=== PATIENT | female | born 1945 | race Caucasian/White ===

== ENCOUNTER 2018-01-09 13:37 | Observation (INO) | payer OTHER ==
--- NOTE | 2018-01-09 14:06 | EDPHY ---
H & P Stated Complaint: TRAVELED FROM [place]/VISITING 2 WEEKS/FEELING SOB/DIZZY Time Seen by Provider: 01/09/18 14:05 - Personal History Current Tetanus/Diphtheria Vaccine: Yes - Medical/Surgical History Hx Asthma: No Hx Chronic Respiratory Disease: No Hx Diabetes: No Hx Cardiac Disease: No Hx Renal Disease: No Hx Cirrhosis: No Hx Alcoholism: No Hx HIV/AIDS: No Hx Splenectomy or Spleen Trauma: No Other PMH: COPD/RA/SCIATICA/HTN - Social History Smoking Status: Former smoker Constitutional: Initial Vital Signs Temperature (C) 37 C 01/09/18 13:44 Heart Rate 116 H 01/09/18 13:44 Respiratory Rate 20 01/09/18 13:44 Blood Pressure 124/82 H 01/09/18 13:44 O2 Sat (%) 91 L 01/09/18 13:44 O2 Delivery Mode Room Air O2 (L/minute) 2 Allergies/Adverse Reactions: acetaminophen [From Percocet] Allergy (Verified 01/09/18 13:42) oxycodone [From Percocet] Allergy (Verified 01/09/18 13:42) pregabalin [From Lyrica] Allergy (Verified 01/09/18 13:42) Home Medications: Medication Instructions Recorded ACTEMRA 01/09/18 Gabapentin 01/09/18 Losartan Potassium 01/09/18 Spiriva Handihaler 01/09/18 Medical Decision Making - Diagnostics Imaging Results: Imaging Impressions Chest X-Ray 01/09/18 14:50 Impression: Underlying COPD, without acute cardiopulmonary process.. Chest/Thorax CTA 01/09/18 15:15 Impression: 1. No evidence of thrombopulmonary embolic disease. 2. Normal caliber atherosclerotic aorta. No dissection or penetrating ulcer. 3. Extensive coronary calcified plaque involving left main, left anterior descending, and origin of the left circumflex coronary artery. 4. Mild bronchitis and minimal paraseptal emphysema. 5. No suspicious pulmonary nodule or lymphadenopathy. Findings discussed with Emergency Department physician, Kit Wallace MD, on , 18:11. Imaging: Discussed imaging studies w/ inbound call center agent Radiologist, I viewed and interpreted images myself ED Course/Re-evaluation: CHIEF COMPLAINT: Dizzy, dyspnea HISTORY OF PRESENT ILLNESS: The patient is a 72 y/o female with a history of COPD and TIA visiting from [place] and arriving with her daughter complaining of dizziness and dyspnea onset last night. She arrived here 3 days ago and visits [place] once or twice annually with no prior issues related to the altitude. Her symptoms are aggravated significantly by standing, walking, and turning her head to the left; they nearly extinguish while lying flat and not moving her head. She has had vertigo once previously 4 years ago that felt similar and responded well to Meclizine. During a prior TIA, she had numbness on the left side of her face that she does not have today. That episode was attributed to "something wrong with my carotid" and she has since taken Plavix. Today she denies headache, weakness, paresthesias, recent trauma, recent illness. REVIEW OF SYSTEMS: A 10 point review of systems was performed and is negative with the exception of the elements mentioned in the history of present illness. PHYSICAL EXAM: HR 108, BP, O2 Sat 91%, RR. Temp noted General Appearance: Alert, well hydrated, appropriate, and non-toxic appearing. Head: Atraumatic without scalp tenderness or obvious injury Eyes: Pupils equal, round, reactive to light and accommodation, EOMI, no trauma , no injection. Ears: Clear bilaterally, no perforation, normal landmarks Nose: Atraumatic, no rhinorrhea, clear. Throat: Mucus membranes moist. Neck: Supple. Respiratory: No retractions, no distress, no wheezes, and no accessory muscle use. Lungs are clear to auscultation bilaterally. Cardiovascular: Mildly tachycardic rate and rhythm, no murmurs, rubs, or gallops. Good capillary refill all extremities. Gastrointestinal: Abdomen is soft, nontender, non-distended, no masses, no rebound, no guarding, no peritoneal signs. Musculoskeletal: Normal active ROM of all extremities, atraumatic. Neurological: Alert, appropriate, and interactive. The patient has non-focal cranial nerves, motor, sensory, and cerebellar exam. Skin: No rashes, good turgor, no nodules on palpation. Past medical history: COPD, rheumatoid arthritis, sciatica, hypertension, TIA - "something abnormal in left carotid" now on Plavix, vertigo 4 years ago. Past surgical history: Noncontributory Family history: Noncontributory Social history: Visiting from [place]. Daughter at bedside. DIAGNOSTICS/PROCEDURES/CRITICAL CARE TIME: The 12 lead EKG was interpreted by myself. Sinus tachycardia rate 103, PVC, possible S1Q3T3 pattern that could represent right heart strain. No prior EKGs available for comparison. See hard copy and/or "tracemaster" electronic copy for interpretation. Chest x-ray: no infiltrate The 12 lead EKG was interpreted by myself. Sinus mechanism rate 89 with borderline first degree AV block. See hard copy and/or "tracemaster" electronic copy for interpretation. Chest/coronary CTA: no PE, profuse coronary calcification Critical care time spent by me, Dr. Wallace, exclusively with this patient was 45 minutes, exclusive of PA time and exclusive of procedures. The organ system at risk was cardiopulmonary. Time spent in serial assessments of patient, discussion with patient and family, consideration of interventions, review of imaging, EKGs, and labs, and consultation with cardiology. DIFFERENTIAL DIAGNOSIS: The differential diagnosis for the patient's dizziness included but was not limited to peripheral and central causes of vertigo, orthostatic causes including dehydration, cardiogenic and neurogenic causes, and blood loss. The differential diagnosis for the patient's shortness of breath and hypoxemia included but was not limited to pneumonia, myocardial infarction, acute mountain sickness, high altitude pulmonary edema, congestive heart failure, and pulmonary embolus. MEDICAL DECISION MAKING: This is a 72 y/o female with a history of TIA, COPD, and one prior episode of vertigo who presents with a 12-24-hour history of dyspnea and dizziness 3 days after arriving at altitude. Her symptoms almost completely extinguish at rest and are worse with exertion and head movement. She is mildly tachycardic and borderline hypoxemic at 91% on room air. Presentation could represent positional vertigo and/or several other causes for exertional dyspnea including COPD and PE. Plan for IV, labs including d-dimer and troponin, chest x-ray, EKG. D-dimer elevated 15.17. Chest CTA ordered to rule out PE. 1527: Troponin elevated 0.113. Consulted with Dr. Ricketts, spouting installer. He would like us to evaluate coronaries on CTA as well and then he will make a determination regarding catheterization. Triple overlay chest CTA ordered. Metoprolol ordered for HR reduction necessary for this imaging study. 1545: Patient is hypoxemic around 89%. Supplemental O2 administered via NC. 1645: Patient's HR is not coming down significantly. It is currently 90 after 3 doses of metoprolol and repeat EKG shows borderline AV block. We have discontinued efforts to lower heart rate and will attempt CTA study regardless. 180: CT shows profuse arterial calcification. No PE. Repeat serial troponin ordered. Ordered 324mg PO aspirin and her normal dose of Plavix. Cardiology and hospitalist paged. 181: Spoke with hospitalist service. Dr. Stroud accepts admission. 183: Consulted with Dr. Cormier, cardiology. He plans to take patient to tutorial laboratory supervisor tomorrow. - Data Points Laboratory Results: Laboratory Results 01/09/18 14:20 01/09/18 14:20 01/09/18 01/09/18 01/09/18 14:20 14:20 14:20 WBC 5.36 10^3/uL 10^3/uL (3.80-9.50) RBC 3.73 10^6/uL L 10^6/uL (4.18-5.33) Hgb 11.3 g/dL L g/dL (12.6-16.3) Hct 34.3 % L % (38.0-47.0) MCV 92.0 fL fL (81.5-99.8) MCH 30.3 pg pg (27.9-34.1) MCHC 32.9 g/dL g/dL (32.4-36.7) RDW 17.8 % H % (11.5-15.2) Plt Count 159 10^3/uL 10^3/uL (150-400) MPV 10.1 fL fL (8.7-11.7) Neut % (Auto) 50.4 % % (39.3-74.2) Lymph % (Auto) 20.3 % % (15.0-45.0) [place] % (Auto) 21.6 % H % (4.5-13.0) Eos % (Auto) 5.0 % % (0.6-7.6) Baso % (Auto) 2.1 % H % (0.3-1.7) Nucleat RBC Rel Count 0.4 % H % (0.0-0.2) Absolute Neuts (auto) 2.70 10^3/uL 10^3/uL (1.70-6.50) Absolute Lymphs (auto) 1.09 10^3/uL 10^3/uL (1.00-3.00) Absolute Monos (auto) 1.16 10^3/uL H 10^3/uL (0.30-0.80) Absolute Eos (auto) 0.27 10^3/uL 10^3/uL (0.03-0.40) Absolute Basos (auto) 0.11 10^3/uL H 10^3/uL (0.02-0.10) Absolute Nucleated RBC 0.02 10^3/uL H 10^3/uL (0-0.01) Immature Gran % 0.6 % % (0.0-1.1) Immature Gran # 0.03 10^3/uL 10^3/uL (0.00-0.10) D-Dimer 15.17 ug/mLFEU H ug/mLFEU (0.00-0.50) Sodium 137 mEq/L mEq/L (135-145) Potassium 3.7 mEq/L mEq/L (3.3-5.0) Chloride 102 mEq/L mEq/L (97-110) Carbon Dioxide 22 mEq/l mEq/l (22-31) Anion Gap 13 mEq/L mEq/L (8-16) BUN 17 mg/dL mg/dL (7-23) Creatinine 0.8 mg/dL mg/dL (0.6-1.0) Estimated GFR > 60 Glucose 89 mg/dL mg/dL (70-100) Calcium 10.4 mg/dL mg/dL (8.5-10.4) Troponin I 0.113 ng/mL H ng/mL (0.000-0.034) NT-Pro-B Natriuret Pep 3440 pg/mL H pg/mL (0-125) Medications Given: Discontinued Medications Diltiazem HCl 125 mg/ Dextrose 125 mls @ 0 mls/hr IV EDNOW ONE; As Directed PRN Reason: Protocol Stop: 01/09/18 16:18 Last Admin: 01/09/18 16:50 Dose: Not Given Metoprolol Tartrate (Lopressor Injection) 5 mg IVP Q5M [facility] Stop: 01/09/18 15:56 Last Admin: 01/09/18 16:13 Dose: 5 mg Departure - Departure Disposition: [facility] Acute Clinical Impression: Dizziness, Elevated d-dimer, Elevated troponin Dyspnea Qualifiers: Dyspnea type: shortness of breath Qualified Code(s): R06.02 - Shortness of breath Condition: Fair Report Scribed for: Kit Wallace Report Scribed by: Kelle Paiz Date of Report: 01/09/18 Time of Report: 14:25
--- NOTE | 2018-01-09 14:10 | CPEKG ---
Heart Rate: 103 RR Interval: 583 P-R Interval: 192 QRSD Interval: 104 QT Interval: 352 QTC Interval: 461 P [place]: 61 QRS [place]: -39 T Wave [place]: 22 EKG Severity - ABNORMAL ECG - EKG Impression: SINUS TACHYCARDIA EKG Impression: VENTRICULAR PREMATURE COMPLEX EKG Impression: PROBABLE LEFT ATRIAL ABNORMALITY EKG Impression: INFERIOR INFARCT, AGE INDETERMINATE EKG Impression: BORDERLINE R WAVE PROGRESSION, ANTERIOR LEADS Electronically Signed By: Kit Wallace 09-Jan-2018 18:58:14
[2018-01-09 14:56] LABS: PLATELET COUNT 159 10^3/uL (150-400)
[2018-01-09] MEDS: METOPROLOL TARTRATE 5 MG/5 ML INJ IVP SCH ×3 (15:38→16:13)
[2018-01-09] MEDS ORDERED: DILTIAZEM 125 MG in D5W 125 ML IV ONE (16:17)
--- NOTE | 2018-01-09 16:46 | CPEKG ---
Heart Rate: 89 RR Interval: 674 P-R Interval: 228 QRSD Interval: 98 QT Interval: 380 QTC Interval: 463 P [place]: 69 QRS [place]: 2 T Wave [place]: 19 EKG Severity - ABNORMAL ECG - EKG Impression: SINUS RHYTHM EKG Impression: FIRST DEGREE AV BLOCK EKG Impression: INFERIOR INFARCT, AGE INDETERMINATE EKG Impression: BORDERLINE R WAVE PROGRESSION, ANTERIOR LEADS Electronically Signed By: Kit Wallace 09-Jan-2018 18:58:14
[2018-01-09] MEDS ORDERED: IOPAMIDOL (ISOVUE 370) 100 ML BTL IV ONE (17:29)
[2018-01-09] MEDS ORDERED: ASPIRIN 81 MG CHEWABLE TAB PO ONE (18:06)
[2018-01-09] MEDS ORDERED: CLOPIDOGREL BISULFATE 75 MG TAB PO ONE (18:08)
[2018-01-09] MEDS ORDERED: ONDANSETRON 4 MG/2 ML VIAL IVP PRN (18:36)
[2018-01-09] MEDS ORDERED: ONDANSETRON DISINTEGRATING 4 MG TAB PO PRN (18:36)
[2018-01-09 18:56] LABS: INR 1.13 (0.83-1.16); PROTIME(PATIENT) 14.7 SEC (12.0-15.0)
--- NOTE | 2018-01-09 20:09 | PDGENHP ---
History and Physical - Chief Complaint SOB - History of Present Illness The patient is a 72 y/o female with a history of COPD and TIA visiting from [place] and arriving with her daughter complaining of dizziness and dyspnea onset last night. She arrived here 3 days ago and visits [place] once or twice annually with no prior issues related to the altitude. Her symptoms are aggravated significantly by standing, walking, and activity. She has been having allergic rhinitis type of symptoms but has not taken any antihistamine. She has had a cough. She feels SOB with exertion. In the ED she has been placed on 2 L O2. She does not have a baseline O2 requirement. Yesterday she had some chest pain while she was SOB. She has not had any recurrence. She denies CP currently, no palpitations, or leg swelling. She has never had an IL, she does not have CHF, no known CV disease. She has had a TIA and there was "plaque" in her left carotid artery and she has been started on Plavix for that. She has a hx of well controlled DM. She has a hx of HLD. She is compliant on all meds She has been afebrile. She has not been wheezy. REVIEW OF SYSTEMS: A 10 point review of systems was performed and is negative with the exception of the elements mentioned in the history of present illness. Data/Studies: -CTA: negative for P.E., diffuse peribronchial thickening, Coronary artery calcifications -CXR: no cardiopulmonary process, presence of hyperinflation (personally reviewed) -Trop: 0.113 -Ddimer: 15 PMHx: TIA DMII HLD HTN COPD Soc: former tobacco, no etoh, visiting daughter fmHx: +DM History Information - Allergies/Home Medication List Allergies/Adverse Reactions: acetaminophen [From Percocet] Allergy (Verified 01/09/18 18:51) was told to avoid APAP by oxycodone [From Percocet] Allergy (Verified 01/09/18 18:51) restless pregabalin [From Lyrica] Allergy (Verified 01/09/18 18:51) blurred vision Home Medications: Atorvastatin Calcium 80 mg PO HS 01/09/18 [Last Taken 01/08/18] Calcium Carb W/Vit D [Calcium Carb W/Vit D 500/200 (*)] 500 mg PO DAILY [Last Taken 01/09/18] Clopidogrel Bisulfate [Plavix (*)] 75 mg PO DAILY 01/09/18 [Last Taken 01/09/18] Cyanocobalamin [Vitamin B12 (*)] 100 mcg PO DAILY 01/09/18 [Last Taken 01/09/18] Diphenoxylate HCl/Atrop Sulf [Lomotil Tab (*)] 1 - 2 tab PO PRN PRN 01/09/18 [ Last Taken 01/09/18] Folic Acid [Folic Acid 1 MG (*)] 1 mg PO DAILY 01/09/18 [Last Taken 01/09/18] Gabapentin [Neurontin 300 MG (*)] 300 mg PO BID 01/09/18 [Last Taken 01/09/18 09 :00] Herbals/Supplements -Info Only 1 ea PO DAILY 01/09/18 [Last Taken Unknown] Hydroxychloroquine Sulfate [Plaquenil 200 mg (*)] 200 mg PO BID 01/09/18 [Last Taken 01/09/18 09:00] Leflunomide [Arava 20 mg (*)] 20 mg PO DAILY 01/09/18 [Last Taken 01/09/18] Losartan Potassium 100 mg PO DAILY 01/09/18 [Last Taken 01/09/18] Methotrexate Sodium [Rheumatrex] 12.5 mg PO FR@09 01/09/18 [Last Taken 01/03/18] Metoprolol Succinate Xr [Toprol Xl 50 mg (*)] 50 mg PO HS 01/09/18 [Last Taken 01/08/18] Omeprazole 20 mg PO HS 01/09/18 [Last Taken 01/08/18] Sertraline HCl [Zoloft 25mg (*)] 12.5 mg PO DAILY 01/09/18 [Last Taken 01/09/18] Tiotropium Inhaler [Spiriva Inhaler] 1 inh IH DAILY 01/09/18 [Last Taken ] Vitamin B Complex [Vitamin B Complex (OTC)] 1 each PO DAILY 01/09/18 [Last Taken 01/09/18] metFORMIN SR [Glucophage XR 500 mg (*)] 500 mg PO DAILY@0800 01/09/18 [Last Taken 01/09/18] I have personally reviewed and updated: medical history, social history - Social History Smoking Status: Former smoker Review of Systems Review of Systems: ROS: 10pt was reviewed & negative except for what was stated in HPI & below Physical Exam Physical Exam: Temp Pulse Resp BP Pulse Ox 37 C 89 18 134/79 H 95 01/09/18 13:44 01/09/18 19:00 01/09/18 19:00 01/09/18 19:00 01/09/18 19:00 Constitutional: no apparent distress Eyes: PERRL, EOMI Ears, Nose, Mouth, Throat: moist mucous membranes, hearing normal, dry mucous membranes Cardiovascular: regular rate and rhythym, No JVD, No edema Respiratory: no respiratory distress, no rales or rhonchi, reduced air movement , No inspiratory crackles, No rhonchi Gastrointestinal: normoactive bowel sounds, soft, non-tender abdomen Genitourinary: no bladder fullness Skin: warm Neurologic: AAOx3 Psychiatric: interacting appropriately, not anxious, not encephalopathic, thought process linear Lymph, Heme, Immunologic: No petechiae Lab Data & Imaging Review 01/09/18 14:20 01/09/18 14:20 WBC 5.36 10^3/uL (3.80-9.50) 01/09/18 14:20 RBC 3.73 10^6/uL (4.18-5.33) L 01/09/18 14:20 Hgb 11.3 g/dL (12.6-16.3) L 01/09/18 14:20 Hct 34.3 % (38.0-47.0) L 01/09/18 14:20 MCV 92.0 fL (81.5-99.8) 01/09/18 14:20 MCH 30.3 pg (27.9-34.1) 01/09/18 14:20 MCHC 32.9 g/dL (32.4-36.7) 01/09/18 14:20 RDW 17.8 % (11.5-15.2) H 01/09/18 14:20 Plt Count 159 10^3/uL (150-400) 01/09/18 14:20 MPV 10.1 fL (8.7-11.7) 01/09/18 14:20 Neut % (Auto) 50.4 % (39.3-74.2) 01/09/18 14:20 Lymph % (Auto) 20.3 % (15.0-45.0) 01/09/18 14:20 [place] % (Auto) 21.6 % (4.5-13.0) H 01/09/18 14:20 Eos % (Auto) 5.0 % (0.6-7.6) 01/09/18 14:20 Baso % (Auto) 2.1 % (0.3-1.7) H 01/09/18 14:20 Nucleat RBC Rel Count 0.4 % (0.0-0.2) H 01/09/18 14:20 Absolute Neuts (auto) 2.70 10^3/uL (1.70-6.50) 01/09/18 14:20 Absolute Lymphs (auto) 1.09 10^3/uL (1.00-3.00) 01/09/18 14:20 Absolute Monos (auto) 1.16 10^3/uL (0.30-0.80) H 01/09/18 14:20 Absolute Eos (auto) 0.27 10^3/uL (0.03-0.40) 01/09/18 14:20 Absolute Basos (auto) 0.11 10^3/uL (0.02-0.10) H 01/09/18 14:20 Absolute Nucleated RBC 0.02 10^3/uL (0-0.01) H 01/09/18 14:20 Immature Gran % 0.6 % (0.0-1.1) 01/09/18 14:20 Immature Gran # 0.03 10^3/uL (0.00-0.10) 01/09/18 14:20 PT 14.7 SEC (12.0-15.0) 01/09/18 14:20 INR 1.13 (0.83-1.16) 01/09/18 14:20 D-Dimer 15.17 ug/mLFEU (0.00-0.50) H 01/09/18 14:20 Sodium 137 mEq/L (135-145) 01/09/18 14:20 Potassium 3.7 mEq/L (3.3-5.0) 01/09/18 14:20 Chloride 102 mEq/L (97-110) 01/09/18 14:20 Carbon Dioxide 22 mEq/l (22-31) 01/09/18 14:20 Anion Gap 13 mEq/L (8-16) 01/09/18 14:20 BUN 17 mg/dL (7-23) 01/09/18 14:20 Creatinine 0.8 mg/dL (0.6-1.0) 01/09/18 14:20 Estimated GFR > 60 01/09/18 14:20 Glucose 89 mg/dL (70-100) 01/09/18 14:20 Calcium 10.4 mg/dL (8.5-10.4) 01/09/18 14:20 Magnesium 1.3 mg/dL (1.6-2.3) L 01/09/18 14:20 Troponin I 0.094 ng/mL (0.000-0.034) H 01/09/18 18:27 NT-Pro-B Natriuret Pep 3440 pg/mL (0-125) H 01/09/18 14:20 Assessment & Plan Assessment: #Likely mild COPD with exacerbation in the setting of worsening seasonal allergies #indeterminate troponin in a pt with HLD and DMII with e/o Coronary artery calcification -EKG (?inferior infarct) #HLD #NIDDM Plan: Admit Trial of steroids/inhaler antihistamine Cards to consult, they were notified by ED TTE Tele Serial trops home meds I have held her long acting BB tonight as she was given Metoprolol x while in the ED and this resulted in a block
[2018-01-09] MEDS ORDERED: PANTOPRAZOLE SODIUM 40 MG TAB PO SCH (21:00)
[2018-01-09] MEDS ORDERED: ATORVASTATIN CALCIUM 40 MG TAB PO SCH (21:00)
[2018-01-09] MEDS: ALBUTEROL 3 ML DEYVIAL IH SCH (21:23)
[2018-01-09] MEDS: HYDROXYCHLOROQUINE SULFATE 200 MG TAB PO SCH (22:35)
[2018-01-09] MEDS: predniSONE 20 MG TAB PO SCH (22:35)
[2018-01-09] MEDS: CETIRIZINE 10 MG TAB PO SCH (22:36)
[2018-01-09] MEDS: GABAPENTIN 300 MG CAP PO SCH (22:36)
[2018-01-10 04:11] LABS: PLATELET COUNT 134 10^3/uL (150-400)
[2018-01-10] MEDS: ALBUTEROL 3 ML DEYVIAL IH SCH ×3 (05:44→15:59)
[2018-01-10] MEDS ORDERED: Herbals/Supplements -Info Only PO SCH (09:00)
[2018-01-10] MEDS ORDERED: CYANO/VITAMIN B12 100 MCG TAB PO SCH (09:00)
[2018-01-10] MEDS ORDERED: CLOPIDOGREL BISULFATE 75 MG TAB PO SCH (09:00)
[2018-01-10] MEDS ORDERED: VITAMIN B COMPLEX 1 EA CAP/TAB PO SCH (09:00)
[2018-01-10] MEDS ORDERED: CALCIUM CARB W/VIT D 500 MG TAB PO SCH (09:00)
[2018-01-10] MEDS ORDERED: TIOTROPIUM INHALER 18 MCG/DOSE 5 DOSE/MDI IH SCH (09:00)
[2018-01-10] MEDS ORDERED: FOLIC ACID 1 MG TAB PO SCH (09:00)
[2018-01-10] MEDS ORDERED: LOSARTAN POTASSIUM 50 MG TAB PO SCH (09:00)
[2018-01-10] MEDS ORDERED: LEFLUNOMIDE 20 MG TAB PO SCH (09:00)
[2018-01-10] MEDS ORDERED: METHOTREXATE 2.5 MG TAB PO SCH (09:00)
[2018-01-10] MEDS ORDERED: ENOXAPARIN 40 MG/0.4 ML SYR SC SCH (09:00)
[2018-01-10] MEDS ORDERED: SERTRALINE HCL 25 MG TAB PO SCH (09:00)
[2018-01-10] MEDS: predniSONE 20 MG TAB PO SCH (09:03)
[2018-01-10] MEDS: GABAPENTIN 300 MG CAP PO SCH (09:03)
[2018-01-10] MEDS: CETIRIZINE 10 MG TAB PO SCH (09:03)
[2018-01-10] MEDS: HYDROXYCHLOROQUINE SULFATE 200 MG TAB PO SCH (09:05)
--- NOTE | 2018-01-10 10:01 | ECHO ---
[email or web address] [address] [address] Main: [phone] Fax: [email or web address] Echocardiogram Name: PATSY SOLIS MR#: [id number] Study Date: 01/10/2018 Study Time: 08:08 AM Date of : 1945 Age: 72 year(s) Height: 170.2 cm (67 in.) Weight: 80.29 kg (177 lb.) BSA: 1.92 m2 Gender: Female Examination: Echo Indication: SOB/positive CT Image Quality: Contrast: Requested by: Jermain Stroud BP: 94 mmHg/54 mmHg Heart Rate: Rhythm: Indication: SOB/positive CT Procedure Staff [employer] Inspector: Karuna Zuniga RDCS Reading Physician: Requesting Provider: Measurements: Chambers Valvular Assessment AV/MV Valvular Assessment TV/PV Normal Normal Normal Name Value Range Name Value Range Name Value Range Ao Arabella (MM): 3.3 cm (2.2 cm-3.7 AV meanP mmHg ( - ) TR Vmax: 2.43 mm/s ( - ) cm) MV E Vmax: 0.93 m/s ( - ) TR PGmax: 24 mmHg ( - ) IVSd (2D): 1.1 cm (0.6 cm-1.1 MV A Vmax: 1.69 m/s ( - ) syst. PAP: 29 mmHg ( - ) cm) MV E/A: 0.55 ( - ) LVDd (2D): 4.1 cm (3.9 cm-5.3 cm) LVPWd (2D): 0.9 cm ( - ) LVEF (MOD4): 65 % (>=55 %) EF Range: 65-70 % Continued Measurements: Chambers Valvular Assessment AV/MV Valvular Assessment TV/PV Name Value Name Value Name Value LADs: 4.1 cm MV E' Septal: 0.04 m/s CVP (est.): 5 mmHg LADs Lon.6 cm MV E/E' Septal: 23.90 LA Area: 21.2 cm2 MV E/E' Lateral: 13.70 Additional Vessels Name Value Ao Ascendin.5 cm Findings: Left Ventricle: Patient: PATSY SOLIS Study Date: 01/10/2018 Page 1 of 2 08:08 AM Normal size left ventricle. Mild concentric LV hypertrophy. Normal global systolic LV function. The ejection fraction is estimated to be 65-70 %. No regional wall motion abnormality. Diastolic dysfunction is present. . Right Ventricle: Normal size right ventricle. Left Atrium: The left atrium is normal in size. Atrial septal bowing from right to left. Right Atrium: The right atrium is normal in size. Mitral Valve: Moderate mitral valve leaflet calcification is present. Moderate-severe mitral annular calcification. Aortic Valve: The aortic valve is tri-leaflet. Minimal aortic cusp calcification is noted. Tricuspid Valve: The tricuspid valve is normal in appearance and function. Trivial tricuspid valve regurgitation. The pulmonary artery pressure is normal. Pulmonic Valve: Pulmonary valve not well visualized. Aorta: The aorta is normal. Pericardium: No pericardial effusion. There is pericardial fat. (No Signature Object) Patient: PATSY SOLIS Study Date: 01/10/2018 Page 2 of 2 08:08 AM [id number]
[2018-01-10] MEDS ORDERED: MAGNESIUM SULF 2 GM/WATER 50 ML IV ONE (11:06)
[2018-01-10] MEDS ORDERED: diphenhydrAMINE 25 MG CAP PO ONE (11:13)
[2018-01-10] MEDS ORDERED: TEMAZEPAM 15 MG CAP PO PRN (11:13)
[2018-01-10] MEDS ORDERED: DIAZEPAM 5 MG TAB PO ONE (11:13)
[2018-01-10] MEDS ORDERED: ASPIRIN EC 325 MG TAB PO ONE (11:13)
[2018-01-10] MEDS ORDERED: FAMOTIDINE 20 MG TAB PO ONE (11:13)
[2018-01-10] MEDS ORDERED: NITROGLYCERIN 0.4 MG BTL SL PRN (11:13)
[2018-01-10 12:07] LABS: INR 1.17 (0.83-1.16); PROTIME(PATIENT) 15.1 SEC (12.0-15.0)
[2018-01-10] MEDS ORDERED: MIDAZOLAM 2 MG/2 ML VIAL ONE (12:25)
[2018-01-10] MEDS ORDERED: HEPARIN 10,000 UNIT/10 ML MDV (1,000 UNIT/ML) ONE (12:25)
[2018-01-10] MEDS ORDERED: LIDOCAINE 1% 300 MG/30 ML SDV ONE (12:25)
[2018-01-10] MEDS ORDERED: IOPAMIDOL (ISOVUE-370) 150 ML BTL IV ONE (12:25)
[2018-01-10] MEDS ORDERED: VERAPAMIL 5 MG/2 ML VIAL ONE (12:25)
[2018-01-10] MEDS ORDERED: fentaNYL 100 MCG/2 ML INJ ONE (12:25)
--- NOTE | 2018-01-10 12:27 | GCON ---
[f rep st] CONSULTATION CARDIAC CONSULTATION DATE OF CONSULTATION: 01/10/2018 CHIEF COMPLAINT: Chest pain and shortness of breath. HISTORY OF PRESENT ILLNESS: The patient is a 72-year-old female visiting from [place], who presented to the hospital with chest pain and shortness of breath. She arrived in [place] around 2 a.m. on . When she woke up that morning, she had felt dizzy followed by sharp chest pain. The chest pain then became a heaviness and persisted for hour. She also had SOB which persisted until she made the drive down from [place] to [facility]. On admission to the hospital, her D-dimer was 15 and therefore, she had a pulmonary CT angiogram. It was negative for pulmonary embolus, but she did have a calcification within her whole left coronary system. Her troponin was mildly elevated at 0.113 and is currently 0.053. Her BNP was elevated at 3440. An echocardiogram showed preserved LV function with ejection fraction of 65% with bwkoahwy-na-mwhblu mitral valve calcification. 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 Her risk factors for coronary artery disease include diabetes, hyperlipidemia, and a prior TIA. She also has a history of COPD and was started on nebulizer treatments without any improvement in her symptoms. PAST MEDICAL HISTORY: Diabetes, hyperlipidemia, rheumatoid arthritis, allergic rhinitis, TIA, COPD, depression. PAST SURGICAL HISTORY: She has had multiple joint surgeries including shoulder surgery on 02/06. She has had bilateral knee replacements and bilateral wrist surgeries. FAMILY HISTORY: Her father had congestive heart failure in his 60s, but the details of this are unclear. She denies any other history of coronary disease. SOCIAL HISTORY: She currently lives in [place] and is in [place] for her granddaughter's high school graduation. She has a history of tobacco use, but quit many years ago. HOME MEDICATIONS: Losartan 100 mg daily, Neurontin 300 mg b.i.d., Spiriva inhaler daily, Toprol-XL 50 mg at bedtime, Plavix 75 mg daily, Arava 20 mg daily , folic acid 1 mg daily, methotrexate 12.5 mg on Fridays, Lipitor 80 mg at bedtime, metformin SR 500 mg daily. Zoloft 12.5 mg daily, omeprazole 20 mg daily, lomotil p.r.n., Plaquenil 200 mg b.i.d., herbal supplement daily, vitamin B12 daily, calcium daily, vitamin B daily. ALLERGIES: Percocet and Lyrica. REVIEW OF SYSTEMS: Negative except for what is stated in the H and P. PHYSICAL EXAMINATION: GENERAL: Patient appears in no acute distress. VITALS: Blood pressure 108/58, heart rate 95, oxygen saturation of 90% on 1 L. Afebrile. LUNGS: There are mild crackles at the bilateral bases without any wheezing. CARDIAC: Regular rate and rhythm without any significant murmurs, rubs, or gallops appreciated. ABDOMEN: Soft, nontender, nondistended. Bowel sounds present. EXTREMITIES: Palpable pulses bilaterally without any evidence of edema. NEUROLOGIC: Nonfocal. PSYCHIATRIC: Mood and affect appropriate. SKIN: No obvious rashes or ecchymosis identified. LABORATORY: Troponin 0.113, currently 0.053. BNP 3440. BMP within normal limits. TSH 1.16. Hemoglobin 10.7, hematocrit 32.8. D-dimer 15.17. REPORTS: EKG shows normal sinus rhythm with a 1st degree AV block and evidence of a prior inferior infarct. Echocardiogram revealed preserved LV function without any significant wall motion abnormalities and preserved LV function with an ejection fraction of 65% . She has nzgqjayp-iw-bdyduu mitral valve calcification. A pulmonary CT angiogram was negative for pulmonary embolus but did suggest coronary calcification throughout the left coronary circulation including the left main artery. ASSESSMENT: The patient is a 72-year-old female with multiple risk factors for coronary disease, who presents with angina and mildly elevated troponin. PLAN: The patient presents with acute coronary syndrome. She had sudden onset of chest discomfort with associated shortness of breath and a mildly elevated troponin. She has been ruled out for a pulmonary embolus secondary to an elevated D-dimer and recent travel. There is no evidence of pulmonary embolus, but she did have coronary calcification within the whole left system, including the left main artery. Her EKG is also abnormal and consistent with a prior inferior infarct. I think a nuclear stress test is likely to give us a false negative result. The patient was discussed with Dr. Ricketts, who did recommend proceeding with an angiogram. Risks, benefits, and alternatives of the procedure have been discussed with the patient and she would like to proceed. /[id number]/MODL MTDD
--- NOTE | 2018-01-10 13:23 | ASMTCASEMG ---
Living Arrangements What is your living Answers: With Spouse arrangement? Who do you live with? Type Of Residence What kind of residence do Answers: House you live in? Discharge Plan Comments Coordination Status Comments Notes: Pt is a 72 y/o female admitted for acute coronary syndrome and SOB. Pt went to the laborer heading today. PT has been ordered and awaiting recommendations. Pt will most likely d/c independent when medically stable. CM available for needs. Plan: Independent Date Signed: 01/10/2018 01:23 PM Electronically Signed By:KEYA Calderon
--- NOTE | 2018-01-10 13:32 | PDHPUP ---
History & Physical Update H&P update statement: This history and physical update is based on an assessment of the patient which was completed after admission or registration (within 24 hours), but prior to the surgery/procedure. H&P update: changes noted (The patient has negative pulmonary CT and also significant left sided coronary calcification needs angiography because of elevated troponin abnormal EKG and CCS Class IV and nyha Class IV symptoms.)
--- NOTE | 2018-01-10 13:33 | PDPROPOC ---
Sedation Plan of Care Sedation Plan of Care: vital signs stable, mental status noted, patient educated of risks, benefits, alternatives, patient can tolerate sedation ASA Classification: ASA 3 Planned drugs: fentanyl, midazolam Mallampati Score: Class 3 Mallampati Reference Image: Patient passed 3-3-2 rule?: Yes
--- NOTE | 2018-01-10 14:06 | PDDXCAT ---
Diagnostic Cath Note - . 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 It bifurcates into an LAD and circumflex system. LAD: The LAD is 4 mm in size. There is a 30% lesion in the proximal segment of the LAD. There is a 30% ostial diagonal lesion. BREANNA III flow. LCX: The LCX is 3mm in size. BREANNA III flow. RCA: The RCA is 3 mm in size. It arrises annonymously and anteriorly to right coronary cusp. There is a 30% lesion in the mid RCA. Complications: NONE. Estimated blood loss: <50ml Closure method: TR Band Assessment: The patient has navajo vessel coronary disease with no evidence of flow limiting obstruction, dissection, or thrombus. Plan: She has non-flow limiting coronary disease. She should continue with her current statin regimen with the addition of Aspirin 81mg daily. Her symptoms of chest pain may be related to altitude sickness and we can consider sending her home Diamox therapy. Intervention: NONE. Patient Problems: Problems Problem Status Onset Dizziness Acute Dyspnea Acute Elevated d-dimer Acute Elevated troponin Acute
[2018-01-10] MEDS ORDERED: ATROPINE SULFATE 1 MG/10 ML SYR IVP PRN (14:36)
--- NOTE | 2018-01-10 17:02 | PDHOMEO2F ---
Home Oxygen Face to Face Home Orders: I certify that a physician or a nurse practitioner or physician's bankruptcy legal assistant has had a [id number] encounter with this patient on the date of this order due to the diagnosis listed, which relates to the primary reason the patient requires home oxygen. Alternative treatments have been tried, or considered, and deemed ineffective. It is anticipated that supplemental oxygen will result in improvement with treatment. Home oxygen qualifying diagnosis: Suspected COPD Home oxygen secondary diagnosis: Reactive airways SpO2 on room air (%): 87 Frequency of home oxygen needed: continuous Home oxygen liters per minute: 2 Home oxygen delivery device: nasal cannula Concentrator: Yes E-tanks for mobility and back up: Yes If ordering portable O2, is the patient mobile in the home?: Yes I certify that, based on these findings, the home oxygen is medically necessary for this patient for the following length of time. Length of time home oxygen needed: 3 months
--- NOTE | 2018-01-10 17:09 | PDDCSUM ---
Discharge Summary Discharge Summary: DISCHARGE SUMMARY FOLLOW-UP ITEMS: 1. Reassess outpatient supplemental oxygen needs 2. Outpatient pulmonary function test DATE OF ADMISSION: 01/09/2018 DATE OF DISCHARGE: 01/10/2018 DISCHARGE DIAGNOSES: 1. Suspected acute COPD exacerbation 2. Nonobstructive coronary artery disease 3. Acute demand ischemia CONSULTATIONS: Cardiology PROCEDURES / IMAGING: Cardiac catheterization demonstrating non flow limiting coronary artery disease with normal ejection fraction CT angiogram of the chest demonstrating no pulmonary embolism, no focal airspace disease, coronary calcifications, mild emphysematous changes CHIEF COMPLAINT: Acute shortness of breath and lightheadedness SUBJECTIVE: Patient is feeling well at time of discharge PHYSICAL EXAM ON DISCHARGE: Systolic blood pressure is 90-130, heart rate 90, afebrile overnight, satting 87 % on room air, alert awake oriented x3, lungs are currently clear to auscultation bilaterally without any expiratory wheezes, no inspiratory crackles , heart rhythm is regular LABS ON DISCHARGE: Creatinine 0.9, troponin peaked at 0.1, white blood cell count 4000, hemoglobin 10.7 HOSPITAL COURSE BY PROBLEM: The patient presented with acute shortness of breath most likely secondary to acute, mild COPD exacerbation in the setting of recent elevation changes well as seasonal allergy precipitants. On presentation, she received steroids and DuoNeb treatment, with subsequent albuterol nebulizer, and she reports that her symptoms abated thereafter. Her symptom of lightheadedness on presentation was most likely secondary to hypoxia, and this abated with supplemental oxygen as well as treatment of above. Consequently, I recommend that she complete a total 5 day course of steroid burst as well as ongoing albuterol inhaler as needed, as well as supplemental oxygen as her SpO2 is 87% on room air. I recommend that she follow up with her outpatient pulmonary clinic next week, to reassess ongoing oxygen needs, determine whether she requires supplemental oxygen as she transitions back home to [place] on January 21, and discuss outpatient pulmonary function tests with her at that time. Given that the patient had significant coronary calcifications on CT angiogram Violeta experienced acute demand ischemia in the setting of her COPD exacerbation, she underwent cardiac catheterization, which demonstrated non flow limiting mild coronary artery disease, medical management was recommended. She is already on Plavix and statin, these medications will be continued. DISCHARGE MEDICATIONS: Please see official discharge medication reconciliation sheet in chart , albuterol inhaler as needed, prednisone 40 mg times for subsequent days. DISCHARGE INSTRUCTIONS: Please follow up with the outpatient pulmonary clinic next week.
[2018-01-10 18:34] VITALS: BP 138/73
== END 2018-01-10 19:58 | disposition home or self-care (01) ==
LOC: F2W 19:50
PROVIDERS: ADMIT Family Medicine; ATTEND Internal Medicine
DX: J44.1 Chronic obstructive pulmonary disease with (acute) exacerbation (principal); I25.119 Atherosclerotic heart disease of native coronary artery with unspecified angina pectoris; R42 Dizziness and giddiness; M06.9 Rheumatoid arthritis, unspecified; E11.9 Type 2 diabetes mellitus without complications; I10 Essential (primary) hypertension; M54.40 Lumbago with sciatica, unspecified side; Z87.891 Personal history of nicotine dependence; Z86.73 Personal history of transient ischemic attack (TIA), and cerebral infarction without residual deficits; Z96.653 Presence of artificial knee joint, bilateral
CPT/HCPCS: 71046; 71275; 93005; 93306; 93458; 96374; 99291; C1769; C1887; G0378; J1644; J2250; J3010; J3475; J7512; J7613; Q9967; J1650